=== PATIENT | female | born 1995 | race Caucasian/White ===

== ENCOUNTER 2017-06-20 09:34 | Outpatient (CLI) | payer OTHER ==
--- NOTE | 2017-06-20 14:03 | RAD ---
HYSTEROSALPINGOGRAM: Date: 06/20/17 INDICATION: Infertility evaluation; patient has had at least five separate miscarriages over the last year. The patient did have a history of a normal and delivery a little over 1 year ago. The patient is 8 days out from her last menstrual period with no active spotting prior to exam. TECHNIQUE: Informed consent was obtained. Preprocedure cavalry scout images were obtained. Speculum was placed. The cer vix was cleansed with Betadine swabs. A catheter was inserted into the cervix and into the uterine c avity, and a small balloon catheter was filled. Following this was retrograde opacification of Omnip aque contrast under real-time fluoroscopic exam. Spot images were obtained. Following acquisition of the images, the catheter balloon was reduced and the catheter was removed. The speculum was removed . The patient tolerated the procedure without difficulty. FINDINGS: Diesel Instructor images demonstrate bowel gas pattern that is unobstructed. No suspicious calcifications are ev ident. Cj fill images on the HSG demonstrate no intraluminal focal filling defect. There is normal opacification of both fallopian tubes with bilateral free spill. IMPRESSION: Normal hysterosalpingogram. POS: [facility]
[2017-06-20] MEDS ORDERED: Iopamidol 300 61% 30 ML VIAL ONE (16:07)
== END 2017-06-20 09:35 | disposition home or self-care (01) ==
LOC: RAD 09:34
PROVIDERS: ATTEND Obstetrics & Gynecology
DX: Z31.41 Encounter for fertility testing (principal)
CPT/HCPCS: 58340; 74740

== ENCOUNTER 2017-10-07 20:52 | Emergency (ER) | payer OTHER ==
[2017-10-07 21:15] LABS: #Basophils 0.1 thou/uL (0.0-0.2); #Eosinphils 0.6 thou/uL (0.0-0.7); #Lymphocytes 3.3 thou/uL (1.20-3.40); #Monocytes 1.1 thou/uL (0.11-0.59); #Neutrophils 5.3 thou/uL (1.40-6.50); %Basophils 0.7 % (0.0-1.0); %Lymphocytes 31.7 % (21.0-51.0); %Neutrophils 50.7 % (42.0-75.0); Hemoglobin 12.5 g/dL (12.0-16.0); Mean Corpuscular HGB CONC 33.9 g/dL (32.0-36.0); Mean Corpuscular Hemoglobin 28.7 pg (27.0-31.0); Mean Corpuscular Volume 84.7 fl (81.0-99.0); Mean Platelet Volume 6.8 fL (7.4-10.4); Platelet Count 455 thou/uL (130-400); RBC Distribution Width 12.8 % (11.5-14.5); Red Blood Cell (RBC) Count 4.35 mill/uL (4.20-5.40); White Blood Cell (WBC) Count 10.4 thou/uL (4.8-10.8)
[2017-10-07 21:41] LABS: Bilirubin Negative (Negative); Blood, Urine Negative (Negative); Clarity CLEAR (Clear); Glucose, Urine (Dipstick) Negative (Negative); Leukocyte Negative (Negative); Nitrite Negative (Negative); Protein, Urine (Dipstick) Negative (Neg-Trace); Specific Gravity, Urine 1.024 (1.002-1.036)
[2017-10-07 22:00] LABS: ALT (SGPT) 23 U/L (8-55); AST (SGOT) 19 U/L (5-34); Albumin 4.4 g/dL (3.5-5.0); Alkaline Phosphatase 90 U/L (40-150); Anion Gap 9 mmol/L (10-20); BUN (Urea Nitrogen) 9 mg/dL (7.0-18.7); Bilirubin, Total 0.3 mg/dL (0.2-1.2); Calc. Creatinine Clearance 0 mL/min (70-130); Carbon Dioxide 25 mmol/L (22-29); Chloride 107 mmol/L (98-107); Estimated GFR-MDRD Greater than 90; Globulin 3.5 g/dL (2.4-3.5); Glucose 85 mg/dL (70-105); Potassium 3.9 mmol/L (3.5-5.1); Protein, Total 7.9 g/dL (6.0-8.3); Sodium 137 mmol/L (136-145)
--- NOTE | 2017-10-08 07:59 | ULT ---
PRELIMINARY REPORT/[facility]/EMERGENCY AFTER HOURS PROCEDURE: EXAM: US Pelvis Complete, Transabdominal US Pelvis, Transvaginal US Duplex Arterial/Venous of the Pelvis, Complete CLINICAL HISTORY: 21 years old, female; Pain and signs and symptoms; Lmp or gestational age (in weeks): 09/01/17; Antepartum complications; Other: Light vaginal bleed; complicated by abdominal or pelvic pa in; Other: Rlq; ; Patient HX: TECHNIQUE: Real-time transabdominal and transvaginal pelvic ultrasound (complete) with image documentation. Transvaginal imaging was used for better evaluation of the endometrium and adnexa. Real-time duplex u ltrasound scan of the arterial and venous flow of the pelvis with color Doppler flow and spectral wav eform analysis. COMPARISON: No relevant prior studies available. FINDINGS: Uterus/cervix: Uterus is anteverted and measures 8.6 x 3.9 x 4.8 cm. Endometrium homogeneous in echot exture measuring 8 mm in thickness at the uterine fundus. No endometrial cavity fluid. No intrauterin e gestational sac. No myometrial mass. Right ovary: Right ovary measures 3.7 x 1.8 x 2.2 cm. Hypoechoic focus within the right ovary measuri ng 16 x 14 x 10 mm. No torsion. Left ovary: Left ovary measures 3.3 x 2.7 x 2.2 cm. Simple left ovarian cyst measuring 19 x 18 x 16 m m. No torsion. Free fluid: No free fluid. IMPRESSION: 1. No sonographic evidence of acute pelvic abnormality. 2. No sonographic evidence of intrauterine or ectopic . Recommend beta-hCG measurements and followup ultrasound as indicated. 3. Simple left ovarian cyst and probable proteinaceous right ovarian cyst. 4. Incidental/non-acute findings are described above. Thank you for allowing us to participate in the care of your patient. Dictated and Authenticated by: Chris Washington MD 10/08/2017 12:28 AM Central Time ([place] & [place]) FINAL REPORT PELVIC ULTRASOUND WITH DOPPLER: I agree with the preliminary report given by Dr. Chris Washington of [employer]. POS: [facility]
== END 2017-10-08 03:01 | disposition home or self-care (01) ==
LOC: ERS 20:52
DX: O03.9 Complete or unspecified spontaneous abortion without complication (principal)
CPT/HCPCS: 36415; 76856; 80053; 81003; 84702; 85025; 86900; 86901; 90384; 96372; 99284

== ENCOUNTER 2019-10-31 19:44 | Emergency (ER) | payer OTHER ==
[2019-10-31 20:37] LABS: #Eosinphils 0.3 thou/uL (0.0-0.7); #Lymphocytes 1.7 thou/uL (1.20-3.40); #Monocytes 0.9 thou/uL (0.11-0.59); #Neutrophils 9.4 thou/uL (1.40-6.50); %Basophils 0.2 % (0.0-1.0); %Eosinophils 2.1 % (0.0-10.0); %Lymphocytes 14.1 % (21.0-51.0); %Neutrophils 76.6 % (42.0-75.0); Hemoglobin 11.9 g/dL (12.0-16.0); Mean Corpuscular HGB CONC 34.5 g/dL (32.0-36.0); Mean Corpuscular Hemoglobin 28.8 pg (27.0-31.0); Mean Corpuscular Volume 83.3 fL (78.0-98.0); Mean Platelet Volume 7.1 fL (7.4-10.4); Platelet Count 329 thou/uL (130-400); Red Blood Cell (RBC) Count 4.13 mill/uL (4.20-5.40); White Blood Cell (WBC) Count 12.3 thou/uL (4.8-10.8)
[2019-10-31 20:41] LABS: Bilirubin Negative (Negative); Blood, Urine Negative (Negative); Clarity Clear (Clear); Glucose, Urine (Dipstick) 30 mg/dL (Negative); Leukocyte Negative Leu/uL (Negative); Nitrite Negative (Negative); Protein, Urine (Dipstick) 10 mg/dL (Neg-Trace); Urobilinogen Normal mg/dL (Less than 2)
[2019-10-31 20:43] LABS: BHCG - Serum POSITIVE (NEGATIVE); Pregs Control Background? CLEAR/WHITE (CLR/WHITE); Pregs Control Bar Appear? YES (CONTROL BAR)
--- NOTE | 2019-10-31 22:17 | ULT ---
Obstetric sonogram transabdominal imaging HISTORY: First trimester . Pain. Possible rupture of membranes. FINDINGS: Uterus has a heterogeneous echotexture and is 12.7 cm. Intrauterine gestational sac contain s a pole in variable presentation. Heart motion at 155 bpm. Amniotic fluid is within normal limits. Gross movements visualized. Early gestational age limits anatomic detail. Measurements are as follows: Biparietal diameter 14 weeks 1 day Head circumference 13 weeks 6 days Femur length 12 weeks 5 days Estimated date of delivery based on today's sonogram 05/03/2020. IMPRESSION: Single viable intrauterine gestation. Estimated gestational age 13 weeks 4 days. Amniotic fluid within normal limits. No significant abnormalities are demonstrated.
== END 2019-10-31 23:25 | disposition home or self-care (01) ==
LOC: ERS 19:44
DX: O99.89 Other specified diseases and conditions complicating pregnancy, childbirth and the puerperium (principal); R10.9 Unspecified abdominal pain; Z3A.13 13 weeks gestation of pregnancy
CPT/HCPCS: 36416; 76805; 81003; 84702; 84703; 85025; 86900; 86901; 87086

== ENCOUNTER 2020-04-10 16:54 | Day surgery (SDC) | payer OTHER, SELFPAY ==
[2020-04-10 17:30] VITALS: BMI 41.0
--- NOTE | 2020-04-10 18:00 | PDOC.LDHP ---
Labor and Delivery H&P HPI: 24 y/o presents at 35 and 6/7 weeks c/o of decreased movement today, and somewhat over the weekend. On L&D the patient states the baby is now moving normally, and NST is reactive, Category 1. BPP ordered and pending. Current medications: pre- vitamins Previous surgical history: none Allergies/Adverse Reactions: Allergies Allergy/AdvReac Type Severity Reaction Status Date / Time No Known Allergies Allergy Verified 04/10/20 17:30 Social history: none - Physical Exam General: NAD Heart: RRR Lungs: CTAB Abdomen: gravid Extremeties: no edema FHT: category 1, early decelerations, variability present - Plan Plan: other (If BPP is WNL, will DC to home with strict Movement precautions, and F/U in clinic in 48 hours.)
--- NOTE | 2020-04-10 19:26 | ULT ---
ULTRASOUND BIOPHYSICAL PROFILE: HISTORY: distress, decreased movement FINDINGS: A single live intrauterine gestation is seen. heart rate:152bpm ADRIENNE: 12.4 cm Placenta: Anterior without placenta previa OB biophysical profile: tone: 2 breathin movements: 2 Amniotic fluid: 2 IMPRESSION: The ultrasound biophysical profile score is 8 out of 8.
== END 2020-04-10 19:34 | disposition home or self-care (01) ==
LOC: L&D/OP 16:54
PROVIDERS: ATTEND Obstetrics & Gynecology
DX: O36.8130 Decreased fetal movements, third trimester, not applicable or unspecified (principal); Z3A.35 35 weeks gestation of pregnancy
CPT/HCPCS: 59025; 76819; 99282

== ENCOUNTER → 2020-04-20 | Outpatient (CLI) | payer OTHER ==
[2020-04-21 13:49] LABS: SARS-CoV-2 MS2 Positive; SARS-CoV-2 N Gene Negative; SARS-CoV-2 S Gene Negative; SARS-CoV-2 by NAA Not Detected (NotDetected); SARS-CoV-2 orf1ab Negative
== END ==
LOC: LABBT 08:00
PROVIDERS: ATTEND Obstetrics & Gynecology
DX: Z20.828 Contact with and (suspected) exposure to other viral communicable diseases (principal)
CPT/HCPCS: 87635; U0003

== ENCOUNTER 2020-04-28 09:42 | Emergency (ER) | payer OTHER ==
--- NOTE | 2020-04-28 11:38 | MRI ---
Exam: Brain MRI without contrast HISTORY: Left facial numbness. Difficulty moving the left leg. COMPARISON: None FINDINGS: Calvarial marrow signal intensity: Appropriate T1 signal Gradient echo sequence: No hemorrhage Brain parenchyma: No mass, mass effect or midline shift. Brain volume, age-appropriate. Cortical marie-white matter differentiation: Preserved Restricted diffusion: Central arterial flow voids are maintained. Absent restricted diffusion White matter signal intensities: T2, FLAIR white matter hyperintensities due to chronic small vessel ischemic changes Sinuses: Adequate aeration of the paranasal sinuses and mastoid air cells. Additional findings: Symmetric signal intensity in the internal auditory canals and visualized inner ear structures. IMPRESSION: No acute intracranial process.
== END 2020-04-28 12:25 | disposition home or self-care (01) ==
LOC: ERS 09:42
DX: G51.0 Bell's palsy (principal)
CPT/HCPCS: 70551